=== PATIENT | female | born 2005 | race American Indian/Alaskan Native ===

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

== ENCOUNTER 2025-04-15 18:44 | Inpatient (IN) | payer MEDICAID ==
[2025-04-15 19:53] LABS: PLATELET COUNT,PLT 348.0 10^3/uL (150-450); RED BLOOD CELL COUNT 4.87 10^6/uL (4.2-5.4); WHITE BLOOD CELL COUNT,WBC 27.9 10^3/uL (5.0-10.0)
[2025-04-15 19:55] LABS: APPEARANCE,URINE CLEAR (CLEAR); GLUCOSE,URINE NEGATIVE (NEGATIVE); OCCULT BLOOD,URINE MODERATE (NEGATIVE)
[2025-04-15 20:01] LABS: ALANINE AMINOTRANSFERASE,ALT 6 U/L (14-59); ASPARTATE AMNIOTRANSFERASE,AST 12 U/L (15-37); BLOOD UREA NITROGEN,BUN 8 mg/dL (7-18); CREATININE 0.74 mg/dL (0.55-1.02); ESTIMATED GFR 119 mL/min (>=60); LACTATE DEHYDROGENASE,LDH 129 U/L (81-234)
[2025-04-15 20:20] LABS: CREATININE,URINE RAND 259.66 mg/dL (No establ ref range); PROTEIN CREATININE RATIO,URINE 536.5 mg/g (<150.0); PROTEIN,URINE RANDOM 139.3 mg/dL (0.0-11.9)
[2025-04-15] MEDS ORDERED: ePHEDrine 50 MG/ML SDV IVPUSH PRN (21:02)
[2025-04-15] MEDS ORDERED: Ropivacaine 200 MG in Premix Bag 1 BAG EPIDUR SCH (21:15)
[2025-04-15] MEDS: Lactated Ringers 1,000 ML IV SCH (21:30)
[2025-04-15] MEDS: Lactated Ringers 1,000 ML IV ONE (21:49)
[2025-04-15] MEDS ORDERED: Ondansetron 4 MG/2 ML SDV IVPUSH PRN (22:26)
[2025-04-15] MEDS ORDERED: Sodium Chloride 0.9% 10 ML Syringe FLUSH PRN (22:26)
[2025-04-15] MEDS ORDERED: Carboprost Tromethamine 250 MCG/1 mL Vial IM PRN (22:26)
[2025-04-15] MEDS ORDERED: Oxytocin/Lactated Ringers 30 UNIT/500 ML BAG IV SCH (22:30)
[2025-04-16 00:58] LABS: PLATELET COUNT,PLT 300.0 10^3/uL (150-450); RED BLOOD CELL COUNT 4.49 10^6/uL (4.2-5.4); WHITE BLOOD CELL COUNT,WBC 23.2 10^3/uL (5.0-10.0)
[2025-04-16 01:16] LABS: ALANINE AMINOTRANSFERASE,ALT 7.0 U/L (14-59); ASPARTATE AMNIOTRANSFERASE,AST 11.0 U/L (15-37); BILIRUBIN TOTAL 1.6 mg/dL (0.2-1.0); BLOOD UREA NITROGEN,BUN 10.0 mg/dL (7-18); CARBON DIOXIDE,CO2 17.0 mmol/L (21-32); CHLORIDE,CL 102.0 mmol/L (98-107); CREATININE 0.89 mg/dL (0.55-1.02); EST CRCL DRUG DOSING (CG) 91.49 mL/min; GLUCOSE RANDOM 72.0 mg/dL (70-99); POTASSIUM,K 3.2 mmol/L (3.5-5.1); PROTEIN TOTAL,TP 5.5 g/dL (6.4-8.2); SODIUM,NA 137.0 mmol/L (136-145)
[2025-04-16 01:37] LABS: A/G RATIO 0.34; ESTIMATED GFR 96.0 mL/min (>=60)
[2025-04-16] MEDS: Oxytocin/Normal Saline 30 UNIT/500 ML BAG IV SCH (04:40)
[2025-04-16] MEDS: fentaNYL 100 MCG/2 ML SDV IVPUSH ONE (06:25)
[2025-04-16] MEDS ORDERED: Oxytocin 10 Units/1 ML SDV IM PRN (06:57)
[2025-04-16] MEDS ORDERED: Carboprost Tromethamine 250 MCG/1 mL Vial IM PRN (06:57)
[2025-04-16] MEDS: fentaNYL 100 MCG/2 ML SDV ONE ×2 (08:04)
[2025-04-16] MEDS: Prenatal Multivitamin with Calcium/Folic Acid/Iron Tab PO SCH (08:56)
[2025-04-16] MEDS: Benzocaine/Menthol 20%-0.5% Spray 78 GM Cannister TOP PRN (08:57)
[2025-04-16] MEDS: Witch Hazel Medicated Pads 100/Jar TOP PRN (08:57)
[2025-04-16] MEDS: Measles, Mumps & Rubella Vaccine 0.5 ML SDV SUBCUT ONE (15:41)
[2025-04-16] MEDS: NS + KCl 20mEq/L 1,000 ML IV ONE (16:37)
[2025-04-16 18:30] LABS: PLATELET COUNT,PLT 291.0 10^3/uL (150-450); RED BLOOD CELL COUNT 3.92 10^6/uL (4.2-5.4); WHITE BLOOD CELL COUNT,WBC 21.6 10^3/uL (5.0-10.0)
[2025-04-16 18:42] LABS: BLOOD UREA NITROGEN,BUN 14.0 mg/dL (7-18); CARBON DIOXIDE,CO2 19.0 mmol/L (21-32); CHLORIDE,CL 107.0 mmol/L (98-107); CREATININE 1.12 mg/dL (0.55-1.02); EST CRCL DRUG DOSING (CG) 72.7 mL/min; GLUCOSE RANDOM 70.0 mg/dL (70-99); POTASSIUM,K 3.4 mmol/L (3.5-5.1); SODIUM,NA 138.0 mmol/L (136-145)
[2025-04-16 18:43] LABS: ESTIMATED GFR 73.0 mL/min (>=60)
[2025-04-16 21:17] LABS: APPEARANCE,URINE CLEAR (CLEAR); GLUCOSE,URINE NEGATIVE (NEGATIVE); OCCULT BLOOD,URINE LARGE (NEGATIVE)
[2025-04-16 21:33] LABS: EPITHELIAL CELLS,URINE FEW /HPF (NOT SEEN)
[2025-04-16 22:15] LABS: PLATELET COUNT,PLT 292 10^3/uL (150-450); RED BLOOD CELL COUNT 3.81 10^6/uL (4.2-5.4); WHITE BLOOD CELL COUNT,WBC 22.4 10^3/uL (5.0-10.0)
[2025-04-16 22:20] LABS: BASOPHILS PERCENT AUTO 0.1 % (0.0-1.0); EOSINOPHILS PERCENT AUTO 0.1 % (1.0-3.0); LYMPHOCYTES PERCENT AUTO 8.1 % (20.5-50.1); MONOCYTES PERCENT AUTO 4.6 % (2-8); NEUTROPHILS PERCENT AUTO 87.1 % (42.2-75.2)
[2025-04-16 22:49] LABS: SEG NEUTROPHILS PERCENT MAN 62 % (42-75)
[2025-04-16 22:50] LABS: BAND PERCENT MAN 25 %; LYMPHOCYTES PERCENT MAN 10 % (20-50); MONOCYTES PERCENT MAN 3 % (2-8)
[2025-04-17] MEDS: NS + KCl 20mEq/L 1,000 ML IV SCH (00:19)
[2025-04-17 07:28] LABS: BASOPHILS PERCENT AUTO 0.1 % (0.0-1.0); EOSINOPHILS PERCENT AUTO 0.0 % (1.0-3.0); LYMPHOCYTES PERCENT AUTO 7.5 % (20.5-50.1); MONOCYTES PERCENT AUTO 7.4 % (2-8); NEUTROPHILS PERCENT AUTO 85.0 % (42.2-75.2); PLATELET COUNT,PLT 286 10^3/uL (150-450); RED BLOOD CELL COUNT 3.54 10^6/uL (4.2-5.4); WHITE BLOOD CELL COUNT,WBC 22.6 10^3/uL (5.0-10.0)
[2025-04-17 07:47] LABS: ALANINE AMINOTRANSFERASE,ALT 7.0 U/L (14-59); ASPARTATE AMNIOTRANSFERASE,AST 12.0 U/L (15-37); BILIRUBIN TOTAL 0.8 mg/dL (0.2-1.0); BLOOD UREA NITROGEN,BUN 15.0 mg/dL (7-18); CARBON DIOXIDE,CO2 19.0 mmol/L (21-32); CHLORIDE,CL 108.0 mmol/L (98-107); CREATININE 0.8 mg/dL (0.55-1.02); EST CRCL DRUG DOSING (CG) 101.78 mL/min; GLUCOSE RANDOM 55.0 mg/dL (70-99); POTASSIUM,K 2.8 mmol/L (3.5-5.1); PROTEIN TOTAL,TP 4.2 g/dL (6.4-8.2); SODIUM,NA 138.0 mmol/L (136-145)
[2025-04-17 07:52] LABS: A/G RATIO 0.27; ESTIMATED GFR 109.0 mL/min (>=60)
[2025-04-17] MEDS: Iopamidol 612 MG/ML 100 ML Bottle IVPUSH ONE ×2 (10:02)
[2025-04-17] MEDS: Potassium Chloride 10 MEQ Tab.ER PO ONE (12:18)
[2025-04-17] MEDS: Potassium Chloride 10 MEQ Tab.ER PO SCH (17:36)
[2025-04-17 19:34] LABS: PLATELET COUNT,PLT 372 10^3/uL (150-450); RED BLOOD CELL COUNT 3.83 10^6/uL (4.2-5.4); WHITE BLOOD CELL COUNT,WBC 26.9 10^3/uL (5.0-10.0)
[2025-04-17 19:47] LABS: ALANINE AMINOTRANSFERASE,ALT 10.0 U/L (14-59); ASPARTATE AMNIOTRANSFERASE,AST 15.0 U/L (15-37); BILIRUBIN TOTAL 0.7 mg/dL (0.2-1.0); BLOOD UREA NITROGEN,BUN 13.0 mg/dL (7-18); CARBON DIOXIDE,CO2 18.0 mmol/L (21-32); CHLORIDE,CL 111.0 mmol/L (98-107); CREATININE 0.79 mg/dL (0.55-1.02); EST CRCL DRUG DOSING (CG) 103.07 mL/min; GLUCOSE RANDOM 82.0 mg/dL (70-99); POTASSIUM,K 4.0 mmol/L (3.5-5.1); PROTEIN TOTAL,TP 4.7 g/dL (6.4-8.2); SODIUM,NA 141.0 mmol/L (136-145)
[2025-04-17 19:49] LABS: A/G RATIO 0.27; ESTIMATED GFR 110.0 mL/min (>=60)
[2025-04-17 20:26] LABS: BASOPHILS PERCENT AUTO 0.1 % (0.0-1.0); EOSINOPHILS PERCENT AUTO 0.3 % (1.0-3.0); LYMPHOCYTES PERCENT AUTO 7.3 % (20.5-50.1); MONOCYTES PERCENT AUTO 7.0 % (2-8); NEUTROPHILS PERCENT AUTO 85.3 % (42.2-75.2)
[2025-04-17 22:09] LABS: BAND PERCENT MAN 25 %; LYMPHOCYTES PERCENT MAN 13 % (20-50); MONOCYTES PERCENT MAN 5 % (2-8); SEG NEUTROPHILS PERCENT MAN 57 % (42-75)
[2025-04-18 07:20] LABS: PLATELET COUNT,PLT 329 10^3/uL (150-450); RED BLOOD CELL COUNT 3.51 10^6/uL (4.2-5.4); WHITE BLOOD CELL COUNT,WBC 22.2 10^3/uL (5.0-10.0)
[2025-04-18 07:27] LABS: LYMPHOCYTES PERCENT AUTO 8.0 % (20.5-50.1); NEUTROPHILS PERCENT AUTO 83.5 % (42.2-75.2)
[2025-04-18 07:28] LABS: BASOPHILS PERCENT AUTO 0.0 % (0.0-1.0); EOSINOPHILS PERCENT AUTO 0.6 % (1.0-3.0); MONOCYTES PERCENT AUTO 7.9 % (2-8)
[2025-04-18 07:40] LABS: ALANINE AMINOTRANSFERASE,ALT 11.0 U/L (14-59); ASPARTATE AMNIOTRANSFERASE,AST 13.0 U/L (15-37); BILIRUBIN TOTAL 0.6 mg/dL (0.2-1.0); BLOOD UREA NITROGEN,BUN 12.0 mg/dL (7-18); CARBON DIOXIDE,CO2 20.0 mmol/L (21-32); CHLORIDE,CL 113.0 mmol/L (98-107); CREATININE 0.55 mg/dL (0.55-1.02); EST CRCL DRUG DOSING (CG) 148.04 mL/min; GLUCOSE RANDOM 57.0 mg/dL (70-99); POTASSIUM,K 4.0 mmol/L (3.5-5.1); PROTEIN TOTAL,TP 4.3 g/dL (6.4-8.2); SODIUM,NA 143.0 mmol/L (136-145)
[2025-04-18 07:43] LABS: A/G RATIO 0.26; ESTIMATED GFR 135.0 mL/min (>=60)
[2025-04-18 07:57] LABS: BAND PERCENT MAN 18 %; SEG NEUTROPHILS PERCENT MAN 65 % (42-75)
[2025-04-18 07:58] LABS: EOSINOPHILS PERCENT MAN 1 % (1-3); LYMPHOCYTES PERCENT MAN 9 % (20-50); MONOCYTES PERCENT MAN 7 % (2-8)
[2025-04-18 18:53] LABS: PLATELET COUNT,PLT 418 10^3/uL (150-450); RED BLOOD CELL COUNT 3.94 10^6/uL (4.2-5.4); WHITE BLOOD CELL COUNT,WBC 26.3 10^3/uL (5.0-10.0)
[2025-04-18 19:04] LABS: BASOPHILS PERCENT AUTO 0.1 % (0.0-1.0); EOSINOPHILS PERCENT AUTO 0.5 % (1.0-3.0); LYMPHOCYTES PERCENT AUTO 7.9 % (20.5-50.1); MONOCYTES PERCENT AUTO 7.5 % (2-8); NEUTROPHILS PERCENT AUTO 84.0 % (42.2-75.2)
[2025-04-18 19:11] LABS: ALANINE AMINOTRANSFERASE,ALT 12.0 U/L (14-59); ASPARTATE AMNIOTRANSFERASE,AST 15.0 U/L (15-37); BILIRUBIN TOTAL 0.5 mg/dL (0.2-1.0); BLOOD UREA NITROGEN,BUN 10.0 mg/dL (7-18); CARBON DIOXIDE,CO2 17.0 mmol/L (21-32); CHLORIDE,CL 112.0 mmol/L (98-107); CREATININE 0.56 mg/dL (0.55-1.02); EST CRCL DRUG DOSING (CG) 145.4 mL/min; GLUCOSE RANDOM 77.0 mg/dL (70-99); POTASSIUM,K 4.2 mmol/L (3.5-5.1); PROTEIN TOTAL,TP 5.0 g/dL (6.4-8.2); SODIUM,NA 141.0 mmol/L (136-145)
[2025-04-18 19:12] LABS: A/G RATIO 0.25; BAND PERCENT MAN 4 %; ESTIMATED GFR 135.0 mL/min (>=60); LYMPHOCYTES PERCENT MAN 8 % (20-50); MONOCYTES PERCENT MAN 8 % (2-8); SEG NEUTROPHILS PERCENT MAN 80 % (42-75)
[2025-04-18] MEDS: Iopamidol 612 MG/ML 100 ML Bottle IVPUSH ONE (19:22)
[2025-04-18 23:06] VITALS: BP 112/62; PULSE 110
== END 2025-04-18 22:50 | DRG 805 ==
LOC: DL.OBCHECK 18:44 → DL.OB 19:57 → OBSVTOIN 04-16 06:20 → DL.MS 04-18 12:56
PROVIDERS: ADMIT Family Medicine; ATTEND Family Medicine
PROC: 10E0XZZ Delivery of Products of Conception, External Approach (ICD-10-PCS; principal; 2025-04-16)
PROC: 3E0P7VZ Introduction of Hormone into Female Reproductive, Via Natural or Artificial Opening (ICD-10-PCS; 2025-04-16)
PROC: 0UQMXZZ Repair Vulva, External Approach (ICD-10-PCS; 2025-04-16)
PROC: 10907ZC Drainage of Amniotic Fluid, Therapeutic from Products of Conception, Via Natural or Artificial Opening (ICD-10-PCS; 2025-04-16)
PROC: 3E033VJ Introduction of Other Hormone into Peripheral Vein, Percutaneous Approach (ICD-10-PCS; 2025-04-16)
PROC: 3E03329 Introduction of Other Anti-infective into Peripheral Vein, Percutaneous Approach (ICD-10-PCS; 2025-04-16)
PROC: 3E0S3BZ Introduction of Anesthetic Agent into Epidural Space, Percutaneous Approach (ICD-10-PCS; 2025-04-16)
PROC: 00HU33Z Insertion of Infusion Device into Spinal Canal, Percutaneous Approach (ICD-10-PCS; 2025-04-16)
DX: O99.62 Diseases of the digestive system complicating childbirth (principal); K35.33 Acute appendicitis with perforation, localized peritonitis, and gangrene, with abscess; Z37.0 Single live birth; K63.1 Perforation of intestine (nontraumatic); D62 Acute posthemorrhagic anemia; N17.9 Acute kidney failure, unspecified; Z3A.38 38 weeks gestation of pregnancy; O77.0 Labor and delivery complicated by meconium in amniotic fluid; O70.0 First degree perineal laceration during delivery; O99.284 Endocrine, nutritional and metabolic diseases complicating childbirth; O99.892 Other specified diseases and conditions complicating childbirth; E79.0 Hyperuricemia without signs of inflammatory arthritis and tophaceous disease; E87.6 Hypokalemia; R00.0 Tachycardia, unspecified; H54.7 Unspecified visual loss; R80.9 Proteinuria, unspecified; R82.4 Acetonuria
CPT/HCPCS: 01967; 36415; 51701; 51702; 59409; 74177; 76815; 80048; 80053; 81001; 81003; 82565; 82570; 83615; 84156; 84450; 84460; 84520; 84550; 85025; 85027; 86140; 87040; 87086; 90471; 90707; A9270-GY; J2270; J2371; J2543; J2590; J3010; J3480; J7040; J7120; Q9967